=== PATIENT | female | born 1990 | race Caucasian/White ===

== ENCOUNTER 2017-08-07 11:42 | Observation (INO) | payer MEDICAID, OTHER ==
--- NOTE | 2017-08-07 12:03 | CPEKG ---
Heart Rate: 57 RR Interval: 1053 P-R Interval: 136 QRSD Interval: 84 QT Interval: 472 QTC Interval: 460 P [place]: 50 QRS [place]: 44 T Wave [place]: 1 EKG Severity - BORDERLINE ECG - EKG Impression: SINUS RHYTHM EKG Impression: BORDERLINE T ABNORMALITIES, ANTERIOR LEADS Electronically Signed By: Rusty Rader 07-Aug-2017 12:47:56
--- NOTE | 2017-08-07 12:43 | EDPHY ---
H & P Stated Complaint: cp and heart racing at 1030; "worried" lasting seconds Time Seen by Provider: 08/07/17 11:57 HPI/ROS: This patient reports a 2-5 minutes of chest pain 5/10 intensity substernal left- sided in location described as pressure associated with diaphoresis and dizziness. Taking a deep breath causes symptoms to increase in terms of more intensity of the pressure pain. The symptoms resolved without intervention but she has had fleeting episodes of similar to chest pressure lasting a few seconds at a time since the initial episode. No worsening of the symptoms with leaning forward. No other exacerbating factors are noted. Onset of symptoms were 90 min after eating food, having a cup of coffee and a Midol for menstrual cramps. She arrived here by private vehicle for further evaluation and is accompanied by her mother and her girlfriend. She has never had these symptoms before. ROS: Constitutional: No fevers. She did have mild fatigue for couple days last week associated with brief URI symptoms. HEENT: nasal congestion as if she was starting to get a viral URI but the symptoms that resolved after 2 days. No sore throat Pulmonary: Mild shortness of breath since the onset of symptoms. No coughing. Cardiovascular: She felt that she had a fast heart rate during the episode of pressure earlier today. She had associated lightheadedness for few minutes. The symptoms have since resolved. GI: Mild nausea. No vomiting. No abdominal pain. She did have 1 loose stool this morning. : Last menstrual period is current-normal flow. No urinary symptoms moderate menstrual cramps improved with Midol. Endocrine: No complaints Integumentary: No rash Complete review of symptoms is otherwise negative. Source: Patient Exam Limitations: No limitations - Personal History LMP (Females 10-55): Now - Medical/Surgical History PMH: Otherwise healthy Other PMH: Tonsilectomy - Family History Significant Family History: Heart disease (Her father of an MS at 49) - Social History Smoking Status: Never smoked Alcohol Use: Occasionally Drug Use: Marijuana (She reports marijuana use about once a week) - Physical Exam Exam: Vital signs: Normal General Appearance: Alert, no distress. Eyes: Pupils equal and round no pallor or injection. ENT, Mouth: Mucous membranes moist. Respiratory: Clear to auscultation bilaterally. Cardiovascular: Regular rate and rhythm with mild-1 to 2/6 systolic murmur. No peripheral edema. Gastrointestinal: Abdomen is soft and nontender, no masses, bowel sounds normal. Neurological: GCS 15 with no focal deficits. Skin: Warm and dry, no rashes. Musculoskeletal: Neck is supple nontender. Extremities are symmetrical, full range of motion. Psychiatric: Mood and affect normal DIFFERENTIAL DIAGNOSIS: After history and physical exam differential diagnosis was considered for GERD with esophageal spasm, pericarditis, mitral valve prolapse with atypical pain, pulmonary embolism, doubt musculoskeletal source of pain, pneumothorax, pneumonia, premature coronary artery diseasehemic disease goes urine right the the Constitutional: Initial Vital Signs Temperature (C) 36.5 C 08/07/17 11:49 Heart Rate 56 L 08/07/17 11:49 Respiratory Rate 16 08/07/17 11:49 Blood Pressure 138/90 H 08/07/17 11:49 O2 Sat (%) 99 08/07/17 11:49 O2 Delivery Mode Room Air Allergies/Adverse Reactions: red (food color) Allergy (Verified 08/07/17 11:54) red dye Allergy (Verified 08/07/17 11:54) Sulfa (Sulfonamide Antibiotics) Allergy (Verified 08/07/17 11:54) Home Medications: Medication Instructions Recorded NK [No Known Home Meds] 08/07/17 Medical Decision Making - Diagnostics EKG Interpretation: 12 lead EKG performed at 1201 indication chest pain Sinus rhythm at 57 Intervals: Normal throughout [place]: Normal throughout ST segments: Patient has an isolated T-wave inversion in lead V3 with no prior EKGs for comparison. Overall assessment sinus rhythm with borderline anterior T-wave abnormality Please refer to trace master for complete read. Imaging Results: Imaging Impressions Chest X-Ray 08/07/17 13:14 Impression: Normal. Clear lungs. No explanation for pain. Chest x-ray: Normal by my interpretation Imaging: I viewed and interpreted images myself ED Course/Re-evaluation: Aspirin 324 p.o. Monitor Labs reveal normal chemistries, normal troponin, normal D-dimer, ESR. CBC is pending Maalox and Levsin p.o. Patient continued to have fleeting chest pains while here I spoke with Dr. Tamy Lanza-global project manager regarding this patient with chest pains , family history of premature coronary artery disease, abnormal EKG a possible subtle dynamic change who suggests admission to hospitalist with cardiology consult and nitroglycerin. Possibilities could include premature coronary disease with ischemic symptoms, coronary artery dissection, pericarditis, GERD with esophageal spasm or other. Patient tolerated supple nitroglycerin is then given 0.5 in nitropaste. I spoke with Lina Alanis, hospitalist at [facility] accepts this patient for transfer to the PCU. I counseled patient and her family including her sister who is a family practitioner regarding her symptoms, cyst studies and plan for admission. - Data Points Laboratory Results: Laboratory Results 08/07/17 12:47 08/07/17 08/07/17 08/07/17 12:47 12:47 12:47 WBC Pending RBC Pending Hgb Pending Hct Pending MCV Pending MCH Pending MCHC Pending RDW Pending Plt Count Pending MPV Pending Neut % (Auto) Pending Lymph % (Auto) Pending [place] % (Auto) Pending Eos % (Auto) Pending Baso % (Auto) Pending Nucleat RBC Rel Count Pending Absolute Neuts (auto) Pending Absolute Lymphs (auto) Pending Absolute Monos (auto) Pending Absolute Eos (auto) Pending Absolute Basos (auto) Pending Absolute Nucleated RBC Pending Immature Gran % Pending Immature Gran # Pending ESR 4 MM/HR MM/HR (0-20) D-Dimer 0.40 ug/mLFEU ug/mLFEU (0.00-0.50) Sodium 141 mEq/L mEq/L (134-144) Potassium 4.3 mEq/L mEq/L (3.5-5.2) Chloride 104 mEq/L mEq/L (97-110) Carbon Dioxide 22 mEq/l mEq/l (22-31) Anion Gap 15 mEq/L mEq/L (8-16) BUN 11 mg/dL mg/dL (7-23) Creatinine 0.8 mg/dL mg/dL (0.6-1.0) Estimated GFR > 60 Glucose 96 mg/dL mg/dL (70-100) Calcium 9.5 mg/dL mg/dL (8.5-10.4) Troponin I < 0.012 ng/mL ng/mL (0.000-0.034) Medications Given: Discontinued Medications Al Hydroxide/Mg Hydroxide (Maalox Susp) 30 ml PO EDNOW ONE Stop: 08/07/17 13:15 Last Admin: 08/07/17 13:18 Dose: 30 ml Aspirin (Aspirin) 324 mg PO EDNOW ONE Stop: 08/07/17 13:11 Last Admin: 08/07/17 13:17 Dose: 324 mg Hyoscyamine Sulfate (Levsin, Hyomax-Sl) 0.125 mg PO EDNOW ONE Stop: 08/07/17 13:19 Last Admin: 08/07/17 13:44 Dose: 0.125 mg Nitroglycerin (Nitrostat) 0.4 mg SL EDNOW ONE Stop: 08/07/17 14:42 Last Admin: 08/07/17 14:49 Dose: 0.4 mg Nitroglycerin (Nitro-Bid 2%) 0.5 inch TP EDNOW ONE Stop: 08/07/17 15:07 Last Admin: 08/07/17 15:11 Dose: 0.5 inch Departure - Departure Disposition: [facility] Inpatient Acute Clinical Impression: Abnormal EKG Chest pain Qualifiers: Chest pain type: unspecified Qualified Code(s): R07.9 - Chest pain, unspecified Condition: Good Referrals: CASSIDY GARZA [Primary Care Provider] - As per Instructions
[2017-08-07] MEDS ORDERED: ASPIRIN 81 MG CHEWABLE TAB PO ONE (13:10)
[2017-08-07 13:11] LABS: ANION GAP 15 mEq/L (8-16); CALCIUM 9.5 mg/dL (8.5-10.4); CARBON DIOXIDE 22 mEq/l (22-31); CHLORIDE 104 mEq/L (97-110); CREATININE 0.8 mg/dL (0.6-1.0); GLOMERULAR FILTRATION RATE > 60; GLUCOSE 96 mg/dL (70-100); POTASSIUM 4.3 mEq/L (3.5-5.2); SEDIMENTATION RATE 4 MM/HR (0-20); SODIUM 141 mEq/L (134-144)
[2017-08-07] MEDS ORDERED: MAG HYDROX/AL HYDROX/SIMETH 30 ML UDCUP PO ONE (13:14)
[2017-08-07] MEDS ORDERED: HYOSCYAMINE SULFATE 0.125 MG TAB PO ONE (13:18)
[2017-08-07 13:25] LABS: TROPONIN I < 0.012 ng/mL (0.000-0.034)
[2017-08-07] MEDS ORDERED: NITROGLYCERIN 0.4 MG BTL SL ONE (14:41)
[2017-08-07] MEDS ORDERED: NITROGLYCERIN 2% 1 GM PACKET TP ONE (15:06)
[2017-08-07 15:41] LABS: % IMMATURE GRANULYOCYTES 0.6 % (0.0-1.1); ABSOLUTE IMMATURE GRANULOCYTES 0.06 10^3/uL (0.00-0.10); ADD DIFF? NO; ADD MORPH? NO; ADD SCAN? NO; ATYPICAL LYMPHOCYTE FLAG 10 (0-99); FRAGMENT RBC FLAG 0 (0-99); HEMATOCRIT 43.1 % (38.0-47.0); LEFT SHIFT FLG 0 (0-99); LIPEMIA HEMOLYSIS FLAG 90 (0-99); MEAN CELL HEMOGLOBIN 31.8 pg (27.9-34.1); MEAN CELL HEMOGLOBIN CONCENTR. 34.8 g/dL (32.4-36.7); MEAN CELL VOLUME 91.5 fL (81.5-99.8); MEAN PLATELET VOLUME 10.9 fL (8.7-11.7); PLATELET CLUMPS FLAG 0 (0-99); PLATELET COUNT 236 10^3/uL (150-400); RED BLOOD CELL COUNT 4.71 10^6/uL (4.18-5.33); RED CELL DISTRIBUTION WIDTH 12.6 % (11.5-15.2)
[2017-08-07] MEDS ORDERED: ONDANSETRON DISINTEGRATING 4 MG TAB PO PRN (18:19)
[2017-08-07] MEDS ORDERED: ACETAMINOPHEN 325 MG TAB PO PRN (18:19)
[2017-08-07] MEDS ORDERED: ONDANSETRON 4 MG/2 ML VIAL IVP PRN (18:19)
[2017-08-07] MEDS ORDERED: IBUPROFEN 200 MG TAB PO PRN (18:19)
--- NOTE | 2017-08-07 18:35 | PDGENHP ---
History and Physical - Chief Complaint chest pain - History of Present Illness 27 yo female, otherwise healthy, developed chest pressure while taking a practice LSAT today. The pain felt dull and was localized under her left breast. Her HR increased. She felt diaphoretic and shaky. +nausea, no vomiting. No fevers or chills. The pain lasted 2-5 minutes and occurred at rest. She went to the ED and was given NTG. Her pain is mostly gone, but gets occasional dull pressure that is transient, lasts just a couple seconds in same area under left breast. She recently took up pilates and reformer exercises. She is a lifetime non-smoker of cigarettes, but uses marijuana infrequently. No h/o hyperlipidemia. Her dad of a NE at age 48. Her PGF of a NE at age 41. Given her EKG abnormalities and concerning family history, she is admitted for further evaluation. History Information - Allergies/Home Medication List Allergies/Adverse Reactions: red (food color) Allergy (Verified 08/07/17 11:54) red dye Allergy (Verified 08/07/17 11:54) Sulfa (Sulfonamide Antibiotics) Allergy (Verified 08/07/17 11:54) Home Medications: NK [No Known Home Meds] 08/07/17 [Last Taken Unknown] I have personally reviewed and updated: family history, medical history, social history, surgical history - Past Medical History no pertinent PMH - Surgical History Reports: no pertinent surgical hx - Family History Positive for: father with history of CAD younger than 55, myocardial infarction Additional family history: father and paternal grandfather of NE in their 40's - Social History Smoking Status: Never smoked Alcohol Use: Occasionally Drug Use: Marijuana (She reports marijuana use about once a week) Review of Systems Review of Systems: ROS: 10pt was reviewed & negative except for what was stated in HPI & below Physical Exam Physical Exam: Temp Pulse Resp BP Pulse Ox 36.9 C 74 16 124/82 H 94 08/07/17 16:49 08/07/17 16:49 08/07/17 16:49 08/07/17 16:49 08/07/17 16:10 O2 (L/minute) 93 Constitutional: no apparent distress Eyes: PERRL Ears, Nose, Mouth, Throat: moist mucous membranes Cardiovascular: regular rate and rhythym, no murmur, rub, or gallop Respiratory: no respiratory distress, clear to auscultation Gastrointestinal: normoactive bowel sounds, soft, non-tender abdomen Skin: warm Musculoskeletal: full muscle strength Neurologic: AAOx3 Psychiatric: interacting appropriately Lab Data & Imaging Review 08/07/17 12:47 08/07/17 12:47 WBC 10.60 10^3/uL (3.80-9.50) H 08/07/17 12:47 RBC 4.71 10^6/uL (4.18-5.33) 08/07/17 12:47 Hgb 15.0 g/dL (12.6-16.3) 08/07/17 12:47 Hct 43.1 % (38.0-47.0) 08/07/17 12:47 MCV 91.5 fL (81.5-99.8) 08/07/17 12:47 MCH 31.8 pg (27.9-34.1) 08/07/17 12:47 MCHC 34.8 g/dL (32.4-36.7) 08/07/17 12:47 RDW 12.6 % (11.5-15.2) 08/07/17 12:47 Plt Count 236 10^3/uL (150-400) 08/07/17 12:47 MPV 10.9 fL (8.7-11.7) 08/07/17 12:47 Neut % (Auto) 81.9 % (39.3-74.2) H 08/07/17 12:47 Lymph % (Auto) 11.4 % (15.0-45.0) L 08/07/17 12:47 [place] % (Auto) 5.5 % (4.5-13.0) 08/07/17 12:47 Eos % (Auto) 0.3 % (0.6-7.6) L 08/07/17 12:47 Baso % (Auto) 0.3 % (0.3-1.7) 08/07/17 12:47 Nucleat RBC Rel Count 0.0 % (0.0-0.2) 08/07/17 12:47 Absolute Neuts (auto) 8.69 10^3/uL (1.70-6.50) H 08/07/17 12:47 Absolute Lymphs (auto) 1.21 10^3/uL (1.00-3.00) 08/07/17 12:47 Absolute Monos (auto) 0.58 10^3/uL (0.30-0.80) 08/07/17 12:47 Absolute Eos (auto) 0.03 10^3/uL (0.03-0.40) 08/07/17 12:47 Absolute Basos (auto) 0.03 10^3/uL (0.02-0.10) 08/07/17 12:47 Absolute Nucleated RBC 0.00 10^3/uL (0-0.01) 08/07/17 12:47 Immature Gran % 0.6 % (0.0-1.1) 08/07/17 12:47 Immature Gran # 0.06 10^3/uL (0.00-0.10) 08/07/17 12:47 ESR 4 MM/HR (0-20) 08/07/17 12:47 D-Dimer 0.40 ug/mLFEU (0.00-0.50) 08/07/17 12:47 Sodium 141 mEq/L (134-144) 08/07/17 12:47 Potassium 4.3 mEq/L (3.5-5.2) 08/07/17 12:47 Chloride 104 mEq/L (97-110) 08/07/17 12:47 Carbon Dioxide 22 mEq/l (22-31) 08/07/17 12:47 Anion Gap 15 mEq/L (8-16) 08/07/17 12:47 BUN 11 mg/dL (7-23) 08/07/17 12:47 Creatinine 0.8 mg/dL (0.6-1.0) 08/07/17 12:47 Estimated GFR > 60 08/07/17 12:47 Glucose 96 mg/dL (70-100) 08/07/17 12:47 Calcium 9.5 mg/dL (8.5-10.4) 08/07/17 12:47 Troponin I < 0.012 ng/mL (0.000-0.034) 08/07/17 12:47 Visualized and Interpreted Chest x-ray results: Yes Chest X-Ray results: no infiltrate Visualized and Interpreted EKG results: Yes EKG Interpretation: Positive for: normal sinsus rhythm, T waves inversion Assessment & Plan Assessment: Abnormal EKG (Acute) Chest pain (Acute) Family history of premature CAD is main risk factor. Doubt ACS. This could be musculoskeletal, especially with new pilates exercise. Initial troponin negative. EKG abnormalities noted with T wave inversions in lead 3 and V3, the former of which is improved on repeat EKG. She is chest pain free at this time. Discussed with cards. -admit to tele -trend troponin -check echo in am -treadmill stress test in am if above w/u negative Full code DVT PPLX - low risk Dispo - PCU obs
--- NOTE | 2017-08-07 21:27 | CPEKG ---
Heart Rate: 53 RR Interval: 1132 P-R Interval: 140 QRSD Interval: 84 QT Interval: 480 QTC Interval: 451 P [place]: 48 QRS [place]: 59 T Wave [place]: 40 EKG Severity - BORDERLINE ECG - EKG Impression: SINUS RHYTHM EKG Impression: BORDERLINE T ABNORMALITIES, ANTERIOR LEADS Electronically Signed By: Bob Rader 08-Aug-2017 13:11:56
--- NOTE | 2017-08-08 11:03 | ECHO ---
[email or web address] [address] Main: [phone] Fax: [email or web address] Echocardiogram Name: HUNTER SOW MR#: [id number] Study Date: 08/08/2017 Study Time: 08:15 AM Date of : 1990 Age: 27 year(s) Height: 165.1 cm (65 in.) Weight: 62.6 kg (138 lb.) BSA: 1.69 m2 Gender: Female Examination: Echo Indication: Chest pain/eval WMA Image Quality: Contrast: Requested by: Lina Alanis BP: 117 mmHg/62 mmHg Heart Rate: Rhythm: Indication: Chest pain/eval WMA Procedure Staff Hot Metal Crane Operator: Emilie Hutchison Reading Physician: Tamy Lanza Requesting Provider: Conclusions: Normal size left ventricle. Normal global systolic LV function. EF is 71 %. No regional wall motion abnormality. Normal size right ventricle. Normal RV function. No pericardial effusion. No significant valvular disease. No prior echo Measurements: Chambers Valvular Assessment AV/MV Valvular Assessment TV/PV Normal Normal Normal Name Value Range Name Value Range Name Value Range Ao Evie (MM): 2.7 cm (2.2 cm-3.7 AV meanP mmHg ( - ) cm) MV E Vmax: 0.77 m/s ( - ) IVSd (2D): 0.6 cm (0.6 cm-1.1 MV A Vmax: 0.32 m/s ( - ) cm) MV E/A: 2.41 ( - ) LVDd (2D): 5.3 cm (3.9 cm-5.3 cm) LVDs (2D): 3.3 cm (2.1 cm-4 cm) LVPWd (2D): 0.8 cm ( - ) LVEF (MOD4): 71 % (>=55 %) Continued Measurements: Chambers Valvular Assessment AV/MV Name Value Name Value LADs: 3.5 cm MV E' Septal: 0.11 m/s Patient: HUNTER SOW Study Date: 08/08/2017 Page 1 of 2 08:15 AM LADs Lon.5 cm MV E/E' Septal: 7.10 LA Area: 15.8 cm2 MV E/E' Lateral: 4.20 Findings: Left Ventricle: Normal size left ventricle. Normal global systolic LV function. EF is 71 %. No regional wall motion abnormality. Right Ventricle: Normal size right ventricle. Normal RV function. Left Atrium: The left atrium is normal in size. Right Atrium: The right atrium is normal in size. Mitral Valve: The mitral valve is normal in appearance and function. Trivial mitral valve regurgitation. Aortic Valve: The aortic valve is normal in appearance and function. Tricuspid Valve: The tricuspid valve is normal in appearance and function. Trivial tricuspid valve regurgitation. Pulmonic Valve: The pulmonic valve is normal in appearance and function. Aorta: The aorta is normal. Pericardium: No pericardial effusion. (No Signature Object) Patient: HUNTER SOW Study Date: 08/08/2017 Page 2 of 2 08:15 AM D:_[id number]
--- NOTE | 2017-08-08 11:34 | CPEKG ---
Heart Rate: 56 RR Interval: 1071 P-R Interval: 136 QRSD Interval: 84 QT Interval: 448 QTC Interval: 433 P [place]: 52 QRS [place]: 44 T Wave [place]: 14 EKG Severity - BORDERLINE ECG - EKG Impression: SINUS RHYTHM EKG Impression: BORDERLINE T ABNORMALITIES, ANT-LAT LEADS Electronically Signed For: Evangelista Howard 08-Aug-2017 11:39:48
--- NOTE | 2017-08-08 11:39 | CPEKG ---
Heart Rate: 50 RR Interval: 1200 P-R Interval: 132 QRSD Interval: 84 QT Interval: 488 QTC Interval: 445 P [place]: 53 QRS [place]: 44 T Wave [place]: 15 EKG Severity - NORMAL ECG - EKG Impression: SINUS RHYTHM Electronically Signed For: Rusty Rader 08-Aug-2017 11:39:18
[2017-08-08] MEDS ORDERED: METOPROLOL TARTRATE 50 MG TAB PO ONE (11:47)
[2017-08-08 12:52] VITALS: O2SAT 93
[2017-08-08] MEDS ORDERED: FLU VACC QS 2017-18 (3YR+)/PF 0.5 ML SYR (FLUARIX QUAD) IM ONE (13:20)
--- NOTE | 2017-08-08 13:31 | CPR ---
[f rep st] NONINVASIVE CARDIAC PROCEDURE REPORT DATE OF PROCEDURE: 08/08/2017 PROCEDURE: Exercise treadmill test. INDICATION: The patient is a 27-year-old female who was studying for her LSAT when she developed deja den onset of left-sided chest discomfort followed by a rapid heart rhythm, dizziness, and diaphoresis . Her symptoms lasted for 2-5 minutes and then resolved spontaneously. She continued to have interm ittent chest discomfort over the next few hours and is currently chest pain free. Her risk factors for coronary artery disease include premature family history of CAD. Her father had a fatal CA at the age of 48. Her paternal grandfather had an CA, which was fatal, at the age of 41. DESCRIPTION OF PROCEDURE: Consent was obtained, and the patient was placed on continuous telemetry. Her resting EKG revealed normal sinus rhythm. With T-wave changes in the inferior and anterior lead s. The patient exercised for 13-1/2 minutes and did complain of 1/10 to 2/10 chest discomfort in the 2nd and 3rd stages of exercise. Her T-wave changes progressed through the 1st and 2nd stages of exe rcise. They then began to improve. Her blood pressure at rest was 102/70 and increased appropriatel y, peaking at 158/78. It returned to baseline 5 minutes into recovery. IMPRESSION: Abnormal exercise treadmill test concerning for ischemia. PLAN: Coronary CT angiogram for further assessment. /[id number]/MODL
--- NOTE | 2017-08-08 13:41 | GCON ---
[f rep st] CONSULTATION CARDIAC CONSULTATION DATE OF CONSULTATION: 08/08/2017 CHIEF COMPLAINT: Chest pain. HISTORY OF PRESENT ILLNESS: The patient is a 27-year-old female who was studying for her LSAT when s he had sudden onset of left-sided chest discomfort followed by tachycardia, dizziness and diaphoresis . Her symptoms lasted for 2-5 minutes, and then resolved slowly. After that, she had intermittent c hest discomfort for the next few hours. She ultimately presented to the ER, at which time, her EKG s howed anterior T-wave changes concerning for ischemia. Her troponins were negative x3. D-dimer was negative at 0.4. She had an echocardiogram which revealed preserved LV function without any signific ant wall motion or valvular abnormalities. She had an exercise treadmill test this morning, was able to exercise for 13-1/2 minutes but complained of 1 to 2/10 chest discomfort in the 2nd and 3rd stage of exercise. Her T-wave inversion progressed in the 1st and 2nd stage of exercise, and then began t o improve. RISK FACTORS FOR CORONARY ARTERY DISEASE: Include a family history. Her paternal grandfather and fa ther had fatal MIs in their 40s; her father was 48 and paternal grandfather was 41. The patient had 1 syncopal event at the age of 18. She was standing in the kitchen washing dishes, w hen she had a true syncopal event. It was witnessed by her friend. She did not have any symptoms pr ior to her event. When she came to, she was aware of her surroundings, and there was no seizure-like activity. PAST MEDICAL HISTORY: None. PAST SURGICAL HISTORY: None. FAMILY HISTORY: As stated above. Her father had a fatal VT at the age of 48, and her paternal grand father had a fatal VT at the age of 41. She denies any other history of sudden cardiac . SOCIAL HISTORY: She is currently accompanied by her mother and girlfriend. She denies any significa nt tobacco or drug use. 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 She plans to compete in [employer] in the next few months. MEDICATIONS: None. ALLERGIES: Sulfa and red dye. REVIEW OF SYSTEMS: Negative except for what is stated in the H and P. PHYSICAL EXAMINATION: GENERAL: The patient appears in no acute distress. VITAL SIGNS: Blood press ure 105/78, heart rate 68, oxygen saturation of 93% on room air. Afebrile. NECK: No carotid bruits or JVD present. LUNGS: Clear to auscultation. No wheezes, rhonchi, or crackles auscultated. CARD IAC: Regular rate and rhythm without any murmurs, rubs, or gallops appreciated. ABDOMEN: Soft, non tender, nondistended. EXTREMITIES: Palpable pulses bilaterally without any evidence of edema. NEUR OLOGIC: Nonfocal. PSYCHIATRIC: Mood and affect appropriate. SKIN: No obvious rashes or ecchymosi s identified. DIAGNOSTIC STUDIES: EKG reveals normal sinus rhythm with heart rate of 57, DE interval of 136, QRS d uration 84, and a QTc of 460. She has anterior T-wave changes concerning for ischemia. Telemetry: Intermittent atrial tachycardia at a rate of 100 beats per minute. She is asymptomatic with this. E xercise treadmill test: Abnormal, concerning for ischemia. Echocardiogram: Normal LV function with an ejection fraction of 71%. She has no significant valvular or wall motion abnormalities. She has no pericardial effusion. Chest x-ray: No acute cardiopulmonary disease. ASSESSMENT: The patient is a 27-year-old female, who presents with new onset chest pain, tachycardia , presyncope and diaphoresis. 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 She has felt well until yesterday afternoon, when she was studying for her LSAT. She had sudden onset o f chest discomfort, followed by tachycardia, diaphoresis and presyncope. On admission to the [facility], her EKG was concerning, showing T-wave changes in the anterior leads. This prompted an exercise t readmill test which was also abnormal. I think she needs further evaluation with a coronary CT angio gram to rule out anomalous coronary artery. She has been given 50 mg of metoprolol for rate control prior to her CT scan. She has already had an echocardiogram which showed her heart to be structurall y normal without any significant wall motion or valvular abnormalities. I think it is possible that her symptoms are related to an arrhythmia. Her EKG shows a short DE interval, which does predispose her for an SVT. She is also showing atrial tachycardia on telemetry, for which she has been asymptom at. If her coronary CT angiogram is negative, I would recommend she be discharged home with a 30-d ay event monitor. She has a history of syncope at the age of 18, which came on without any warning. This will be furth er assessed with an event monitor. /[id number]/MODL
[2017-08-08] MEDS ORDERED: IOPAMIDOL (ISOVUE 370) 100 ML BTL IV ONE (14:03)
--- NOTE | 2017-08-08 14:10 | HOSPPROG ---
Hospitalist Progress Note Assessment/Plan: 27 yo F w strong FH cad here w CP and now abnormal stress test chest pain: neg trop excellent exercise tolerance w/out CP await CT coronary angiogram FH CAD: needs lipid panel atrial tachycardia: 30 day monitor dispo: pending results of CT angiogram Subjective: ekg w anterior TWI (interp by me). stress w ekg changes w exercise. case d/w jaydon heck, cardiology PA Objective: Vital Signs Temp Pulse Resp BP Pulse Ox 36.9 C 68 16 105/78 93 08/08/17 12:45 08/08/17 12:45 08/08/17 12:45 08/08/17 12:45 08/08/17 12:45 08/07/17 08/08/17 08/09/17 05:59 05:59 05:59 Intake Total 900 Balance 900 - Physical Exam Constitutional: no apparent distress, appears nourished Eyes: PERRL, anicteric sclera Ears, Nose, Mouth, Throat: moist mucous membranes, hearing normal Cardiovascular: regular rate and rhythym, no murmur, rub, or gallop Respiratory: no respiratory distress, no rales or rhonchi Gastrointestinal: normoactive bowel sounds, soft, non-tender abdomen Genitourinary: no bladder fullness, No lewis in urethra Skin: warm, normal color Musculoskeletal: full muscle strength, no muscle tenderness Neurologic: AAOx3, sensation intact bilaterally Psychiatric: interacting appropriately ICD10 Worksheet Patient Problems: Problems Problem Status Onset Abnormal EKG Acute Chest pain Acute
--- NOTE | 2017-08-08 15:39 | ASMTCMCOM ---
CM Note CM Note Notes: Chart reviewed. Patient is 27 year old female with chest pain, no needs identified. Likely disposition home independent, Cm available should needs arise. Date Signed: 08/08/2017 03:39 PM Electronically Signed By:Kerri Larson RN
[2017-08-08 16:12] VITALS: BP 126/88; PULSE 53; RESP 12; TEMP 98
--- NOTE | 2017-08-08 21:23 | GDS ---
[f rep st] DISCHARGE SUMMARY DISCHARGE DIAGNOSES: 1. Chest pain. 2. Strong family history of coronary disease. 3. Abnormal EKG with anterior T-wave inversions. HOSPITAL COURSE: Please see admission history and physical by Lina Alanis. The patient presented with chest pain. It was atypical in nature. She had unremarkable chest x-ray. EKG with anterior T- wave inversions. Echocardiogram was normal. Negative troponins. Negative D-dimer. Stress test was performed which showed worsening T-wave inversions so she underwent a CT coronary angiogram with no evidence of coronary disease. She was given a prescription for a fasting lipid panel given her risk. Discharged to home. There is a question of atrial tachycardia on the heart monitor so she is getting a 30-day monitor arr anged by [facility]. /[id number]/MODL
--- NOTE | 2017-08-09 09:49 | ASDISCHSUM ---
Discharge Information Plan Status:Home with No Needs Medically Cleared to Leave:08/07/2017 Discharge Date:08/08/2017 04:55 PM CM D/C Disposition: ADT D/C Disposition:Home, Routine, Self-Care Projected Discharge Date:08/08/2017 12:00 AM Transportation at D/C: Discharge Delay Reason: Follow-Up Date:08/08/2017 12:00 AM Discharge Slot: Final Diagnosis: Placement Information Patient Contact Information Contact Name:JENNIFER Relationship:Mother Address:[address] City:[place] Alternate Phone: State/Zip Code:[place] [address] Email: Financial Information Financial Class: Primary Plan Desc:[employer]EL[employer] Primary Plan Number:[id number] Secondary Plan Desc: Secondary Plan Number: Assessment Information LACE LACE Length of stay for Answers: Less than 1 day current admission Acuity / Level of Care Answers: Was the patient admitted to hospital via the emergency department? Yes: Emergency dept visits in Answers: 0 last 6 months Score: 3 Date Signed: 08/08/2017 03:37 PM Electronically Signed By:Kerri Larson RN [facility] CM Progress Note CM Note CM Note Notes: Chart reviewed. Patient is 27 year old female with chest pain, no needs identified. Likely disposition home independent, Cm available should needs arise. Date Signed: 08/08/2017 03:39 PM Electronically Signed By:Kerri Larson RN Intervention Information
== END 2017-08-08 16:55 | disposition home or self-care (01) ==
LOC: CED 11:42 → CEDHOLD 14:52 → F2W 16:43
PROVIDERS: ADMIT Hospitalist; ATTEND Hospitalist
DX: R07.89 Other chest pain (principal); I49.9 Cardiac arrhythmia, unspecified; Z82.49 Family history of ischemic heart disease and other diseases of the circulatory system; Z23 Encounter for immunization
CPT/HCPCS: 71020; 75574; 90471; 93005; 93017; 93306; 99285; G0378; 80048-PO; 84484-PO; 85025-PO; 85378-PO; 85652-PO; G0008; Q9967

== ENCOUNTER 2017-09-30 07:07 | Day surgery (SDC) | payer MEDICAID ==
[2017-09-30] MEDS ORDERED: NS 1,000 ML IV ONE (07:19)
--- NOTE | 2017-09-30 07:26 | CPEKG ---
Heart Rate: 58 RR Interval: 1034 P-R Interval: 132 QRSD Interval: 82 QT Interval: 460 QTC Interval: 452 P Gratis: 71 QRS Gratis: 63 T Wave Gratis: 23 EKG Severity - NORMAL ECG - EKG Impression: SINUS RHYTHM Electronically Signed By: Layton Moreno 30-Sep-2017 15:29:40
[2017-09-30 07:45] LABS: PLATELET COUNT 258 10^3/uL (150-400)
[2017-09-30 07:59] LABS: PROTIME(PATIENT) 13.4 SEC (12.0-15.0)
[2017-09-30] MEDS ORDERED: LIDOCAINE 1% 300 MG/30 ML SDV ONE (08:25)
[2017-09-30] MEDS ORDERED: HEPARIN 10,000 UNIT/10 ML MDV (1,000 UNIT/ML) ONE (08:25)
[2017-09-30] MEDS ORDERED: ISOPROTERENOL HCL/D5W 0.2 MG/50 ML BAG IV ONE (08:26)
[2017-09-30] MEDS ORDERED: BUPIVACAINE 0.5% 30 ML SDV ONE (08:26)
[2017-09-30] MEDS ORDERED: MIDAZOLAM 2 MG/2 ML VIAL IVP ONE (08:29)
--- NOTE | 2017-09-30 08:30 | PDANEPAE ---
ANE History of Present Illness 27 yo for svt ablation ANE Past Medical History - Cardiovascular History Hx Arrhythmias: Yes Hx Palpitations: Yes - Pulmonary History Hx Oxygen in Use at Home: No Hx Sleep Apnea: No - Endocrine History Hx Diabetes: No - Chronic Pain History Chronic Pain: No ANE Review of Systems Review of Systems: - Exercise capacity METS (RN): 4 METS ANE Patient History - Allergies Allergies/Adverse Reactions: red (food color) Allergy (Verified 08/07/17 11:54) red dye Allergy (Verified 08/07/17 11:54) Sulfa (Sulfonamide Antibiotics) Allergy (Verified 08/07/17 11:54) - Home Medications Home medications: home medication list seen and reviewed Home Medications: NK [No Known Home Meds] 08/07/17 [Last Taken Unknown] - NPO status NPO Status: no food or drink >8 hours - Anes Hx Anes Hx: post operative nausea and vomiting - Smoking Hx Smoking Status: Never smoked ANE Labs/Vital Signs - Labs Result Diagrams: 09/30/17 07:30 09/30/17 07:30 - Vital Signs Height: 5 ft 6.14 in Weight: 62.6 kg ANE Physical Exam - Airway Mallampati Score: Class 2 Mouth exam: normal dental/mouth exam - Pulmonary Pulmonary: no respiratory distress - Cardiovascular Cardiovascular: regular rate and rhythym - ASA Status ASA Status: II ANE Anesthesia Plan Anesthesia Plan: general endotracheal anesthesia
[2017-09-30] MEDS ORDERED: fentaNYL 100 MCG/2 ML INJ ONE (08:35)
[2017-09-30] MEDS ORDERED: REMIFENTANIL HCL 1 MG VIAL ONE ×2 (08:35→10:47)
[2017-09-30] MEDS ORDERED: PROPOFOL/EMULSION 500 MG/50 ML BOTTLE IV ONE ×2 (08:35→10:47)
[2017-09-30] MEDS ORDERED: ROCURONIUM 50 MG/5 ML VIAL ONE (08:39)
[2017-09-30] MEDS ORDERED: MIDAZOLAM 2 MG/2 ML VIAL ONE (08:40)
[2017-09-30] MEDS ORDERED: EPINEPHRINE IV ONE (09:00)
[2017-09-30] MEDS ORDERED: NS IV ONE (09:00)
[2017-09-30] MEDS ORDERED: PROMETHAZINE HCL 25 MG/ML INJ IVP PRN (11:13)
[2017-09-30] MEDS ORDERED: fentaNYL 100 MCG/2 ML INJ IVP PRN (11:13)
[2017-09-30] MEDS ORDERED: NALOXONE HCL 0.4 MG/ML INJ IVP PRN (11:13)
--- NOTE | 2017-09-30 11:13 | POSTANESTH ---
Post Anesthetic Evaluation Cardiovascular Status: Normal, Stable Respiratory Status: Normal, Stable Level of Consciousness/Mental Status: Can Participate in Eval Pain Control: Adequate, Prn Tx Ordered Nausea/Vomiting Control: Adequate, Prn Tx Ordered Complications Possibly Related to Anesthesia: None Noted
--- NOTE | 2017-09-30 11:32 | PDHPUP ---
History & Physical Update H&P update statement: This history and physical update is based on an assessment of the patient which was completed after admission or registration (within 24 hours), but prior to the surgery/procedure. H&P update: H&P reviewed & patient examined, no change in patient's condition since H&P completed
[2017-09-30] MEDS ORDERED: ATROPINE SULFATE 1 MG/10 ML SYR ONE (11:33)
--- NOTE | 2017-09-30 15:58 | EPPROC ---
Electrophysiology Procedure Note: DIAGNOSTIC ELECTROPHYSIOLOGIC STUDY Procedures performed: 1. Fluoroscopy 2. EP evaluation with RA/RV/LA pace/record, with arrhythmia induction 3. EP evaluation with RA/RV pace record, insert/reposition catheter, with arrhythmia induction . Programmed stimulation + pacing after IV drug INDICATION: Sudden in family members father and grandfather Patient had syncope at age 18y QTc was 464 ms at ED visit in 2017 Palpitations HR 191 bpm with mild exercise PROCEDURE: Catheters & Anesthesia: The patient arrived in the Electrophysiology Laboratory in the fasting state. The right clavicular region, right groin, & left groin area were prepped & draped in the usual sterile manner. Dr. Pauline Hadley administered anesthesia. Appropriate non-invasive blood pressure, pulse oximetry & end-tidal CO2 monitoring was established. All catheters were placed percutaneously using the modified Seldinger technique , and advanced into position under fluoroscopic guidance. One #6 Icelandic hexapolar non-deflectable electrode catheter was inserted into the right atrial appendage via the left femoral vein (2mm spacing; except the proximal ring which was 25cm from the tip used for unipolar recordings). One #7 Icelandic deflectable octapolar electrode catheter was advanced to the His-bundle position via the left femoral vein (2mm spacing). One #7 Icelandic deflectable catheter with 10 pairs of electrodes was placed via the right femoral vein into the coronary sinus. Programmed stimulation was performed from the right atrium, right ventricle and coronary sinus (left atrium). Parahisian pacing demonstrated constant H-A interval with changing V-A intervals and stimulus-A intervals during capture and loss of capture of proximal RBB proving retrograde conduction over AV node. Heparin 3000 U was administered. No sustained reentrant tachycardia was induced during programmed stimulation at baseline or during graded doses of isoproterenol up to 8 mcg/min. Epinephrine infusion was administered Baseline QT 416 ms, QTc 406 ms 0.05 mcg/kg/min QT 404 ms, QTc 493 ms 0.1 mcg/kg/min QT 510 ms, QTc 554 ms 0.2 mcg/kg/min QT 492 ms, QTc 532 ms 0.4 mcg/kg/min QT 534 ms, QTc 552 ms Also, notching of T waves in leads V2, V3 and V4 was seen with epinephrine 0.1, 0.2 and 0.4 mcg/kg/min. The catheters were removed. The patient was transferred to the cardiovascular holding area in stable condition. Vascular access sheaths were removed in the holding area. There were no apparent complications. CONCLUSIONS 1. Normal sinus and AV node function. 2. No evidence of accessory AV pathway presence. 3. No sustained arrhythmias induced. 4. No apparent complications. 5. Phenotypic evidence of long QT syndrome seen. Will perform genetic testing. Will start patient on nadolol 20 mg qHS. Have given her and her family [email or web address] website and mobile phone ronald. Have offered second opinion with Dr. La at [facility] if they desire, have given them her ECGs from EP study today to share with him and her sister who is a MD. Patient Problems: Problems Problem Status Onset Syncope Acute Chest pain Acute Abnormal EKG Acute
[2017-09-30] MEDS ORDERED: NADOLOL 20 MG TAB PO SCH (21:00)
[2017-10-01] MEDS ORDERED: ASPIRIN 81 MG CHEWABLE TAB PO SCH (09:00)
== END 2017-09-30 18:00 | disposition home or self-care (01) ==
LOC: FSGY 07:07 → FCATH 18:00
PROVIDERS: ATTEND Internal Medicine Cardiovascular Disease
PROC: 4A023FZ Measurement of Cardiac Rhythm, Percutaneous Approach (ICD-10-PCS; principal; 2017-09-30)
DX: I47.1 Supraventricular tachycardia (principal)
CPT/HCPCS: 93005; 93619; 93620; 93623; C1730; C1731; J0171; J0461; J1644; J2250; J2704; J3010